=== PATIENT | male | born 1985 | race Caucasian/White ===

== ENCOUNTER → 2019-09-25 | Outpatient (CLI) | payer OTHER ==
[2016-04-24 02:45] VITALS: BP 144/96
[2019-09-25 17:10] LABS: BASO # 0.1 (0.02-0.10); EOS # 0.1 (0.04-0.40); EOS % 1.9 % (0.0-4.0); HEMATOCRIT 44.6 % (42.0-52.0); HEMOGLOBIN 15.6 g/dL (13.5-18.0); LYMPH# 1.5 (1.50-4.00); MEAN CELL VOLUME 91 fl (78-100); MEAN CORPUSCULAR HEMOGLOBIN 32 pg (27-31); MEAN CORPUSCULAR HGB CONC 35 g/dL (33-37); MEAN PLATELET VOLUME 11.1 fl (7.4-10.4); MONO # 0.7 (0.20-0.80); NEU # 3.6 (1.40-6.50); PLATELET COUNT 216 K/mm3 (130-400); RED BLOOD COUNT 4.92 M/mm3 (4.20-5.60); RED CELL DISTRIBUTION WIDTH 12.2 % (11.5-14.5); WHITE BLOOD COUNT 5.9 K/mm3 (4.8-10.8)
[2019-09-25 17:19] LABS: POTASSIUM 4.3 mmol/L (3.5-5.1)
[2019-09-25 17:20] LABS: ALBUMIN 4.7 g/dL (3.5-5.0)
[2019-09-25 17:21] LABS: CALCIUM 9.9 mg/dL (8.3-10.5)
[2019-09-25 17:22] LABS: TOTAL PROTEIN 7.8 g/dL (6.4-8.3)
[2019-09-25 17:24] LABS: TOTAL BILIRUBIN 0.7 mg/dL (0.2-1.2)
== END ==
LOC: LAB 16:41
PROVIDERS: Physician Assistant
DX: F41.0 Panic disorder [episodic paroxysmal anxiety] (principal); F41.1 Generalized anxiety disorder; R03.0 Elevated blood-pressure reading, without diagnosis of hypertension; R79.89 Other specified abnormal findings of blood chemistry

== ENCOUNTER → 2022-03-01 | Outpatient (CLI) | payer OTHER ==
[2022-03-01 16:40] LABS: BASO # 0.03 K/mm3 (0.02-0.10); EOS # 0.21 K/mm3 (0.04-0.40); EOS % 2.9 % (0.0-4.0); HEMATOCRIT 41.7 % (42.0-52.0); HEMOGLOBIN 14.6 g/dL (13.5-18.0); LYMPH# 2.14 K/mm3 (1.50-4.00); MEAN CELL VOLUME 94 fl (78-100); MEAN CORPUSCULAR HEMOGLOBIN 33 pg (27-31); MEAN CORPUSCULAR HGB CONC 35 g/dL (33-37); MEAN PLATELET VOLUME 10.3 fl (7.4-10.4); MONO # 0.64 K/mm3 (0.20-0.80); NEU # 4.32 K/mm3 (1.40-6.50); PLATELET COUNT 232 K/mm3 (130-400); RED BLOOD COUNT 4.43 M/mm3 (4.20-5.60); RED CELL DISTRIBUTION WIDTH 11.7 % (11.5-14.5); WHITE BLOOD COUNT 7.3 K/mm3 (4.8-10.8)
[2022-03-01 16:53] LABS: ALBUMIN 4.6 g/dL (3.5-5.0); POTASSIUM 4.2 mmol/L (3.5-5.1)
[2022-03-01 16:54] LABS: CALCIUM 9.7 mg/dL (8.3-10.5)
[2022-03-01 16:55] LABS: TOTAL PROTEIN 7.6 g/dL (6.4-8.3)
[2022-03-01 16:57] LABS: TOTAL BILIRUBIN 0.9 mg/dL (0.2-1.2)
== END ==
LOC: LAB 16:21
PROVIDERS: Physician Assistant
DX: E78.5 Hyperlipidemia, unspecified (principal); I10 Essential (primary) hypertension; F41.9 Anxiety disorder, unspecified; G25.0 Essential tremor; K90.9 Intestinal malabsorption, unspecified

== ENCOUNTER → 2022-05-02 | Outpatient (CLI) | payer OTHER | LOC: RAD 15:34 | DX: N50.811 Right testicular pain (principal) ==

== ENCOUNTER → 2024-03-18 | Outpatient (CLI) | payer OTHER ==
[2024-03-18 14:35] LABS: BASO # 0.02 K/mm3 (0.02-0.10); EOS # 0.07 K/mm3 (0.04-0.40); EOS % 0.8 % (0.0-4.0); HEMOGLOBIN 14.1 g/dL (13.5-18.0); MEAN CELL VOLUME 95 fl (78-100); MEAN CORPUSCULAR HEMOGLOBIN 33 pg (27-31); MEAN CORPUSCULAR HGB CONC 34 g/dL (33-37); MEAN PLATELET VOLUME 10.1 fl (7.4-10.4); NEU # 6.72 K/mm3 (1.40-6.50); PLATELET COUNT 233 K/mm3 (130-400); RED BLOOD COUNT 4.34 M/mm3 (4.20-5.60); RED CELL DISTRIBUTION WIDTH 11.5 % (11.5-14.5); WHITE BLOOD COUNT 8.8 K/mm3 (4.8-10.8)
[2024-03-18 14:40] LABS: ALBUMIN 4.5 g/dL (3.5-5.0)
[2024-03-18 14:41] LABS: CALCIUM 10.2 mg/dL (8.3-10.5)
[2024-03-18 14:42] LABS: TOTAL PROTEIN 7.8 g/dL (6.4-8.3)
[2024-03-18 14:44] LABS: TOTAL BILIRUBIN 0.5 mg/dL (0.2-1.2)
== END ==
LOC: LAB 14:21
PROVIDERS: Physician Assistant
DX: E78.5 Hyperlipidemia, unspecified (principal); K90.9 Intestinal malabsorption, unspecified; R10.9 Unspecified abdominal pain

== ENCOUNTER → 2024-03-19 | Outpatient (CLI) | payer OTHER | LOC: RAD 15:47 | DX: R10.9 Unspecified abdominal pain (principal) ==

== ENCOUNTER → 2024-07-16 | Outpatient (CLI) | payer OTHER ==
[2024-07-16 16:05] LABS: ALBUMIN 4.8 g/dL (3.5-5.0)
[2024-07-16 16:06] LABS: CALCIUM 9.6 mg/dL (8.3-10.5)
[2024-07-16 16:07] LABS: TOTAL PROTEIN 7.7 g/dL (6.4-8.3)
[2024-07-16 16:09] LABS: TOTAL BILIRUBIN 0.7 mg/dL (0.2-1.2)
== END ==
LOC: LAB 15:49
PROVIDERS: Physician Assistant
DX: R74.01 Elevation of levels of liver transaminase levels (principal)